=== PATIENT | female | born 1985 | race Two or more races ===

== ENCOUNTER 2022-02-06 17:14 | Emergency (ER) | payer OTHER ==
[~2022-02-06] VITALS: Ht 157.5 cm; Wt 46.3 kg
[2022-02-06 17:36] VITALS: BP 120/74
--- NOTE | 2022-02-06 18:05 | NUR ---
PER PATIENT NO POSSIBILITY OF BEING , WAIVER SIGNED
[2022-02-06] MEDS ORDERED: IBUP-1955 PO (18:51)
[2022-02-06] MEDS ORDERED: ACET325T53 PO (18:51)
== END 2022-02-06 18:55 | disposition home or self-care (01) ==
LOC: ER 17:22
DX: U07.1 COVID-19 (principal); R50.9 Fever, unspecified; M79.10 Myalgia, unspecified site; B34.9 Viral infection, unspecified; Z79.1 Long term (current) use of non-steroidal anti-inflammatories (NSAID)
CPT/HCPCS: 71045-TC